=== PATIENT | female | born 1985 | race Caucasian/White ===

== ENCOUNTER → 2016-05-12 | Outpatient (CLI) | payer OTHER ==
[2016-05-12 11:03] LABS: BASOPHILS # (AUTO) 0.02 10*3/UL; BASOPHILS % (AUTO) 0.3 % (0-1); EOSINOPHILS # (AUTO) 0.06 10*3/UL; EOSINOPHILS % (AUTO) 0.8 % (0-8); HEMATOCRIT 42.7 % (37.0-47.0); HEMOGLOBIN 14.7 g/dL (12.0-16.0); LYMPHOCYTES # (AUTO) 1.56 10*3/uL; MEAN CORPUSCULAR HEMOGLOBIN 29.9 PG (27-31); MEAN CORPUSCULAR HGB CONC 34.4 g/dL (33-37); MEAN PLATELET VOLUME 8.9 FL (7.4-12.2); MONOCYTES # (AUTO) 0.48 10*3/UL (0.3-0.8); MONOCYTES % (AUTO) 6.5 % (5-15); NEUTROPHILS # (AUTO) 5.22 10*3/UL; NEUTROPHILS % (AUTO) 71.1 % (50-80); RED BLOOD COUNT 4.91 10^6/uL (4.20-5.40)
[2016-05-12 11:05] LABS: PLATELET MORPHOLOGY COMMENT NORMAL MORPHOLOGY (NORM); RBC MORPHOLOGY COMMENT NORMAL MORPHOLOGY (NORM); WBC MORPHOLOGY COMMENT NORMAL MORPHOLOGY (NORM)
[2016-05-12 11:52] LABS: HIV ANTIBODY NEGATIVE (N); HIV-1 P24 ANTIGEN NEGATIVE (N)
--- NOTE | 2016-05-12 16:29 | DI ---
US OB LESS THAN 14 WEEKS,05/12/2016 12:58 PM: Clinical History: Established gestational age. Previous Exam: March 10, 2013 Findings: Multiple grayscale and color Doppler sonographic images are obtained through the pelvis, and demonstr ate a single live intrauterine gestation in unstable lie. Detected Doppler heart tones measure 169 beats per minute. The ovaries are noted bilaterally with normal blood flow in a normal appearance. Estimated gestational age was determined by a crown-rump length of 5.3 cm corresponding with an estim ated gestational age of 12 weeks zero days. Impression: Single live intrauterine gestation with size equal to 12 weeks zero days (this is 3 weeks and 2 days larger than the estimated date of delivery by last menstrual period)
[2016-05-13 13:40] LABS: HEP B SURFACE AG Negative (Negative)
== END ==
LOC: MOB LAB 08:54
PROVIDERS: ATTEND Family Medicine
DX: Z36 Encounter for antenatal screening of mother (principal); Z3A.08 8 weeks gestation of pregnancy
CPT/HCPCS: 36415; 76801; 80081; 86900; 86901; 87088

== ENCOUNTER → 2016-07-14 | Outpatient (CLI) | payer OTHER ==
--- NOTE | 2016-07-14 14:50 | DI ---
HISTORY: Antepartum screening. PREVIOUS EXAM: None available for review at this time. TECHNIQUE: Multiple grayscale and color Doppler sonographic images are obtained through the pelvis. FINDINGS: Ultrasound images demonstrate a single live intrauterine gestation in vertex presentation. Amniotic fluid level is subjectively normal. There is normal motion of the limbs, heart and diaphragms. The placenta is anterior and grade 0 without visible defects. The cervix is long and closed measuring 4.1 cm in length. Detected Doppler heart tones measure 163 beats per minute. Umbilical artery Dopplers are obtained with a very widely between 2.4 and 3.8. Estimated gestational age is determined by a composite of biparietal diameter, head circumference, ab dominal circumference and femur length yielding an estimated gestational age by ultrasound of 20 week s 6 days. Estimated weight is 373 g (31st percentile). IMPRESSION: 1. Single live intrauterine gestation with size equal to dates. 2. SD ratios very widely and may be technique related and measure between 2.4 and 3.8. NOTE: The interpreting Radiologist was not present at the time of ultrasound interrogation.
== END ==
LOC: US 13:01
PROVIDERS: ATTEND Family Medicine
DX: Z36 Encounter for antenatal screening of mother (principal); Z3A.21 21 weeks gestation of pregnancy
CPT/HCPCS: 76805

== ENCOUNTER → 2016-08-29 | Outpatient (CLI) | payer OTHER ==
[2016-08-29 10:02] LABS: HEMATOCRIT 38.3 % (37.0-47.0); HEMOGLOBIN 12.8 g/dL (12.0-16.0); MEAN CORPUSCULAR HEMOGLOBIN 29.8 PG (27-31); MEAN CORPUSCULAR HGB CONC 33.4 g/dL (33-37); MEAN CORPUSCULAR VOLUME 89.1 FL (81-99); MEAN PLATELET VOLUME 9.4 FL (7.4-12.2); RED BLOOD COUNT 4.3 10^6/uL (4.20-5.40)
== END ==
LOC: LAB 08:42
PROVIDERS: ATTEND Family Medicine
DX: Z36 Encounter for antenatal screening of mother (principal); Z3A.27 27 weeks gestation of pregnancy
CPT/HCPCS: 36415; 82950; 84443; 85027

== ENCOUNTER → 2016-10-01 | Outpatient (CLI) | payer OTHER ==
--- NOTE | 2016-10-02 07:38 | DI ---
History: Date discrepancy, third trimester Comparison: July 14, 2016 Findings: Heart rate detected at 143 beats per minute. Amniotic fluid volume normal with the largest vertical pocket measuring 4.3 cm. 4 quadrants total 14. 5 cm. weight is estimated at 1977 g, or 4 lbs. 6 oz. Average ultrasound age is 32 weeks 4 days. Gestational age by last menstrual. Is 32 weeks 2 days. ZAIDA by sonographic calculation is 11/22/2016. ZAIDA by last menstrual period is 11/24/2016 Impression: Live intrauterine fetus with an average ultrasound age of 32 weeks 4 days, and the ZAIDA of 11/22/2016. Dates correlate well with those estimated from last menstrual period. Dates also correlate well with those derived from the sonographic study of July 14, 2016 Normal amniotic fluid volume
== END ==
LOC: US 14:48
PROVIDERS: ATTEND Family Medicine
DX: O26.843 Uterine size-date discrepancy, third trimester (principal); Z3A.32 32 weeks gestation of pregnancy
CPT/HCPCS: 76815

== ENCOUNTER 2016-11-17 12:01 | Inpatient (IN) ==
[2016-11-17] MEDS ORDERED: CefOXitin Inj 2 GM in Sodium Chloride 0.9% 100 ML IV PRN (20:51)
[2016-11-17] MEDS ORDERED: NALOXONE 0.4 MG/1 ML VIAL IVP PRN (20:51)
[2016-11-17] MEDS ORDERED: CITRIC ACID/SODIUM CITRATE 30 ML CUP PO PRN (20:51)
[2016-11-17] MEDS ORDERED: LIDOCAINE W/ SODIUM BICARB 0.5 ML SYR SUBD PRN (20:51)
[2016-11-17] MEDS ORDERED: LIDOCAINE HCL 2 % 10 ML JELLY URO-JECT TOPICAL PRN (20:51)
[2016-11-17] MEDS ORDERED: Carboprost Inj 250 MCG/ML AMP IM PRN (20:51)
[2016-11-17] MEDS ORDERED: CALCIUM CARBONATE 500 MG (TUMS) CHEWABLE TABLET PO PRN ×2 (20:51→22:06)
[2016-11-17] MEDS ORDERED: OXYTOCIN 10 UNIT/1 ML IM PRN (20:51)
[2016-11-17] MEDS ORDERED: METHYLERGONOVINE MALEATE 0.2 MG/1 ML VIAL IM PRN (20:51)
[2016-11-17] MEDS ORDERED: Phenylephrine Inj 50 MCG in Normal Saline Flush 0.5 ML IVP PRN (20:51)
[2016-11-17] MEDS ORDERED: Famotidine Inj 20 MG in Normal Saline Flush 10 ML IVP PRN ×4 (20:51)
[2016-11-17] MEDS ORDERED: Lidocaine 1% 10 MG/ML - 20 ML VIAL SUBCUT PRN (20:51)
[2016-11-17] MEDS ORDERED: Nalbuphine Inj 20 MG/ML Ampule IVP PRN (20:51)
[2016-11-17] MEDS ORDERED: diphenhydrAMINE 50 MG/1 ML VIAL IVP PRN (20:51)
[2016-11-17] MEDS ORDERED: NORMAL SALINE 10 ML SYRINGE FLUSH IVP PRN (20:51)
[2016-11-17] MEDS ORDERED: ONDANSETRON 4 MG/2 ML VIAL IVP PRN (20:51)
[2016-11-17] MEDS ORDERED: Naloxone Inj 0.01 MG in Normal Saline Flush 1 ML IVP PRN (20:51)
[2016-11-17] MEDS ORDERED: fentaNYL Inj 100 MCG/2 ML VIAL IV PRN (20:51)
[2016-11-17] MEDS ORDERED: BUTORPHANOL TARTRATE 2 MG/1 ML VIAL IVP PRN (20:51)
[2016-11-17] MEDS ORDERED: MISOPROSTOL 200 MCG TABLET RECTAL PRN (20:51)
[2016-11-17] MEDS ORDERED: ePHEDrine Inj 5 MG in Normal Saline Flush 1 ML IVP PRN (20:51)
[2016-11-17] MEDS ORDERED: TERBUTALINE SULFATE 1 MG/1 ML SDV SUBCUT PRN (20:51)
[2016-11-17] MEDS ORDERED: Metoclopramide Inj 10 MG/2 ML VIAL IV PRN (20:51)
[2016-11-17] MEDS ORDERED: Oxytocin 20 Units + LR 20 UNIT/1,000 ML BAG IV SCH (21:00)
[2016-11-17 21:06] LABS: Hemoglobin [HGB] 12.9 g/dL (12.0-16.0); MEAN CORPUSCULAR HEMOGLOBIN 28.7 PG (27-31); MEAN CORPUSCULAR HGB CONC 33.9 g/dL (33-37); MEAN CORPUSCULAR VOLUME 84.6 FL (81-99); RED BLOOD COUNT 4.49 10^6/uL (4.20-5.40)
[2016-11-17 21:07] LABS: MEAN PLATELET VOLUME 10.6 FL (7.4-12.2)
[2016-11-17] MEDS ORDERED: Zolpidem Tab 5 MG TAB PO PRN (21:29)
[2016-11-17] MEDS: Lactated Ringers-OB Dept 1,000 ML PRIMARY IV SCH (22:28)
[2016-11-17] MEDS: Misoprostol Tab 100 MCG TAB VAGINAL SCH (23:48)
[2016-11-18] MEDS ORDERED: Oxytocin 20 Units + LR 20 UNIT/1,000 ML BAG IV SCH ×2 (01:00→19:30)
[2016-11-18] MEDS: Misoprostol Tab 100 MCG TAB VAGINAL SCH (04:30)
[2016-11-18] MEDS: Lactated Ringers-OB Dept 1,000 ML PRIMARY IV SCH ×4 (06:44→16:00)
--- NOTE | 2016-11-18 08:48 | OB.PROGRES ---
Date and Time of Service: 11/18/16 @ 0843 Interval History: Pt is a 31 yo at 39 1/7 weeks by first trimester u/s who presented to labor and delivery last [facility] for induction at term. She was astrid too much upon admission to receive cytotec. She ambulated several times through the [facility]. This morning, her contractions had spaced out and she was not feeling them as much. Low dose pitocin augmentation was initiated. She is currently saying that some of her contractions are pretty hard, while others not so much. Still not wanting anything for pain at this time. Denies leakage of fluid or vaginal bleeding. Baby is moving around. No concerns at this time. Objective - Cervical Exam Cervical Exam: tight /-2 [place]: contractions every 2-3 minutes, palpating moderate. Heart Rate: baseline 130; + accels. Moderate variability. Heart Rate Interpretation Category: Category I - Labs CBC and BMP: 11/17/16 20:51 - Vital Signs Last Taken Vital Signs: Vital Signs - Last Taken Temperature 98.2 F 11/18/16 06:45 Pulse Rate 75 11/18/16 06:45 Respiratory Rate 20 11/18/16 03:45 Blood Pressure 101/56 11/18/16 06:45 Pulse Ox 98 11/18/16 06:45 Assessment and Plan - Patient Problems (1) Term Current Visit: Yes Status: Acute Code(s): Z34.80 - Encounter for supervision of other normal , unspecified trimester - Assessment / Plan Additional Assessment/Plan Details: -currently doing well. -will increase the pitocin as needed to keep her contractions every 2-3 minutes. -epidural per pt request. -GBS negative. -expectant management.
[2016-11-18] MEDS ORDERED: Fent/Bupiv 2mcg/0.0625% Epid 250 ML ONE (14:32)
--- NOTE | 2016-11-18 15:03 | CRNA.PROGR ---
Anesthesia Time - - Start date: 11/18/16 - Procedure/Recovery Time Anesthesia : Time In: 14:05 Anesthesia : Time Out: 17:50 - Other Weight: 68.039 kg Height: 5 ft 5 in Body Mass Index (BMI): 25.0 Physical Status: P2 Anesthesia Type: Epidural Obstetrics: Planned vaginal delivery w/ neuraxial labor anesthesia/analog
--- NOTE | 2016-11-18 15:04 | CRNA.PROCE ---
Central Neuraxis Block Placemt - - Safety Measures: Time Out Taken, Site Verified - - Type of Block: Epidural Reason for Block: Analgesia Moniters Used During Block: EKG, SPO2, NIBP Skin Prep Used: Betadine Skin Infiltration - Enter Amount Used in Comment Field: 1% Xylocaine (mL): Yes Introducer User: 18 Gauge Magalie Local Anesthetic - Enter Amount Used in Comment Field: 5.0 % Xylocaine with Dextrose (ml): Yes (5ml) Bioclusive Dressing Applied: Yes Anesthesia Time - Other Weight: 68.039 kg Height: 5 ft 5 in Body Mass Index (BMI): 25.0
--- NOTE | 2016-11-18 16:01 | OB.PROGRES ---
Date and Time of Service: 11/18/16 @ 1420 Interval History: Right when I came to the unit, pt stated that her contractions had become much stronger. She is requesting an epidural at this time. Would like to do this prior to undergoing AROM. Objective - Cervical Exam Cervical Exam: /-2 [place]: every 2-3 minutes, palpating moderate Heart Rate: 120, moderate variability, + accels. Heart Rate Interpretation Category: Category I - Labs CBC and BMP: 11/17/16 20:51 - Vital Signs Last Taken Vital Signs: Vital Signs - Last Taken Temperature 97.9 F 11/18/16 15:00 Pulse Rate 68 11/18/16 15:00 Respiratory Rate 22 11/18/16 15:00 Blood Pressure 99/67 11/18/16 15:00 Pulse Ox 99 11/18/16 15:00 Assessment and Plan - Patient Problems (1) Term Current Visit: Yes Status: Acute Code(s): Z34.80 - Encounter for supervision of other normal , unspecified trimester - Assessment / Plan Additional Assessment/Plan Details: -anesthesia called to place epidural, will give fentanyl in the meantime. -GBS negative. -will complete AROM after she is comfortable with epidural. -expectant management.
--- NOTE | 2016-11-18 18:36 | OB.DEL.SUM ---
Delivery Note Delivery Summary: Pt is a 31 yo G3 now P3, at 39 1/7 weeks by first trimester u/s who presented last noc for cervical ripening. She was astrid too much on admit for cytotec, so she labored all noc. Her cervix this morning was minimally changed and baby's head was still high, so pitocin augmentation was continued through the day. She had an epidural placed around 1430 and had SROM with clear fluid at 1450. She quickly progressed through active labor and was complete at 1730. Baby had a category II strip for most of active labor, with off and on variables and early decelerations. She pushed for about 20 minutes to the delivery of a viable female over an intact perineum at 1750. The baby's nose and mouth were suctioned with a bulb suction and the cord was doubly clamped by myself and cut by the father of the baby. Baby was placed on mom's chest. Cord blood and cord gases were obtained. The placenta delivered at 1800, spontaneously and with a 3 vessel cord. The vagina and perineum were examined and no lacerations were noted. Apgars were 8 at 1 minute and 9 at 5 minutes. Baby weighed 7#3oz. Both mom and baby tolerated delivery well and are in stable condition at this time. EBL 150 cc. - Patient Problems (1) Term Current Visit: Yes Status: Acute Code(s): Z34.80 - Encounter for supervision of other normal , unspecified trimester
[2016-11-18] MEDS ORDERED: Ondansetron ODT Tab 4 MG TAB PO PRN (19:30)
[2016-11-18] MEDS ORDERED: HYDROcodone-APAP 5 MG -325 MG TABLET PO PRN (19:30)
[2016-11-18] MEDS ORDERED: diphenhydrAMINE 25 MG CAPSULE PO PRN (19:30)
[2016-11-18] MEDS ORDERED: CALCIUM CARBONATE 500 MG (TUMS) CHEWABLE TABLET PO PRN (19:30)
[2016-11-18] MEDS ORDERED: LIDOCAINE HCL 2 % 10 ML JELLY URO-JECT TOPICAL PRN (19:30)
[2016-11-18] MEDS ORDERED: diphenhydrAMINE 50 MG/1 ML VIAL IVP PRN (19:30)
[2016-11-18] MEDS ORDERED: BENZOCAINE/MENTHOL SPRAY 56 GM BOTTLE TOPICAL PRN (19:30)
[2016-11-18] MEDS ORDERED: GLYCERIN/WITCH HAZEL 1 BOX TOPICAL PRN (19:30)
[2016-11-18] MEDS ORDERED: ONDANSETRON 4 MG/2 ML VIAL IVP PRN (19:30)
[2016-11-18] MEDS ORDERED: LANOLIN HPA 40 GM TUBE TOPICAL PRN (19:30)
[2016-11-18] MEDS ORDERED: DIPH,PERTUSS,TET(ADACEL) VAC/PF 0.5 ML (Tdap) IM ONE (19:30)
[2016-11-18] MEDS ORDERED: Nalbuphine Inj 20 MG/ML Ampule IVP PRN (19:30)
[2016-11-18] MEDS ORDERED: ACETAMINOPHEN 325 MG TABLET PO PRN (19:30)
[2016-11-18] MEDS ORDERED: NORMAL SALINE 10 ML SYRINGE FLUSH IVP PRN (19:30)
[2016-11-18] MEDS: IBUPROFEN 800 MG TABLET PO PRN (20:18)
[2016-11-19] MEDS: IBUPROFEN 800 MG TABLET PO PRN ×2 (05:03→13:00)
[2016-11-19 05:05] LABS: Hematocrit [HCT] 33.5 % (37.0-47.0); MEAN CORPUSCULAR HEMOGLOBIN 28.2 PG (27-31); MEAN CORPUSCULAR HGB CONC 32.8 g/dL (33-37); MEAN CORPUSCULAR VOLUME 85.9 FL (81-99); MEAN PLATELET VOLUME 10.3 FL (7.4-12.2); RED BLOOD COUNT 3.9 10^6/uL (4.20-5.40)
[2016-11-19 05:10] VITALS: RESP 16; O2SAT 96
[2016-11-19] MEDS: DOCUSATE 100 MG CAPSULE PO SCH ×2 (06:36→09:01)
[2016-11-19] MEDS ORDERED: Prenatal Multivitamin Tab 1 TAB TAB PO SCH (09:00)
--- NOTE | 2016-11-19 09:08 | OB.PROGRES ---
Subjective Post Op Day: 1 Pain Management: PO Oliva Catheter: No Flatus: Yes Diet: Regular Feeding Method: Formula Feeding Ambulating: Yes Concerns / Additional Information: Mild lochia. Back is a little sore where her epidural catheter was placed. Otherwise, has no complaints. Objective General: lying in bed with , in NAD CardioVascular: RRR with no m/r/g. Respiratory: CTAB, no crackles or wheezing. Bowel Sounds: Present Extremities: Negative Karely's - Bilaterally Assesstment / Plan (1) Term Status: Acute Assessment / Plan: -routine cares. -rh positive. -rubella immune. -bottle feeding. -pt requests d/c home tonight after the 24 hour sherita.
--- NOTE | 2016-11-19 09:55 | CRNA.PROGR ---
Anesthesia Note - Progress Notes Anesthesia Progress Note: Ambulatory ad oneyda. Epidural dc'd previously by OB RN. She has no concerns or questions at this time regarding here course of anesthetic care. Vital Signs (24 hrs) Temp Pulse Pulse Pulse Resp Resp BP 11/19/16 08:00 66 66 11/19/16 05:00 97.9 F 68 16 11/19/16 00:07 97.7 F 68 20 116/60 11/18/16 21:00 98.9 F 85 18 117/70 11/18/16 20:00 84 18 108/65 11/18/16 19:30 93 18 120/68 11/18/16 19:15 87 18 104/72 11/18/16 19:00 82 82 18 109/64 11/18/16 18:45 80 18 90/76 11/18/16 18:30 98.5 F 83 18 115/63 11/18/16 17:00 18 95/51 11/18/16 16:45 11/18/16 16:30 73 107/75 11/18/16 16:15 98.1 F 68 20 93/53 11/18/16 16:00 109 H 22 99/60 11/18/16 15:45 68 102/67 11/18/16 15:30 94 105/68 11/18/16 15:15 97.9 F 68 20 103/67 11/18/16 15:00 97.9 F 68 22 99/67 11/18/16 14:00 81 100/72 11/18/16 13:00 86 11/18/16 12:30 84 123/82 11/18/16 11:30 74 22 115/74 11/18/16 11:00 68 20 114/75 11/18/16 10:45 85 11/18/16 10:30 83 119/71 11/18/16 10:15 64 119/71 11/18/16 10:00 73 20 Pulse Ox 11/19/16 08:00 11/19/16 05:00 96 11/19/16 00:07 97 11/18/16 21:00 98 11/18/16 20:00 11/18/16 19:30 11/18/16 19:15 11/18/16 19:00 99 11/18/16 18:45 11/18/16 18:30 11/18/16 17:00 11/18/16 16:45 100 11/18/16 16:30 11/18/16 16:15 11/18/16 16:00 11/18/16 15:45 11/18/16 15:30 11/18/16 15:15 99 11/18/16 15:00 99 11/18/16 14:00 11/18/16 13:00 100 11/18/16 12:30 97 11/18/16 11:30 97 11/18/16 11:00 99 11/18/16 10:45 98 11/18/16 10:30 98 11/18/16 10:15 100 11/18/16 10:00 98
[2016-11-19 17:28] VITALS: BP 107/65; TEMP 97.7
== END 2016-11-19 19:45 | disposition home or self-care (01) | DRG 775 ==
LOC: OBIP 20:22
PROVIDERS: ADMIT Family Medicine; ATTEND Family Medicine